=== PATIENT | male | born 1990 | race Caucasian/White ===

== ENCOUNTER 2017-07-13 22:00 | Inpatient (IN) | payer OTHER ==
--- NOTE | ~2017-07-13 | PN ---
Unit #: [id number] #: [id number] Patient: CHETAN RICK [id number] [facility] [address] [place] [address] [id number] MR#: [id number] NAME: CHETAN RICK. ROOM: [facility] Age: 27 Sex: M Admission Date: 07/14/2017 : 1990 Attending Physician: Kvng Zelaya M.D. Admitting Physician: Kvng Zelaya M.D. Primary Care Physician: Primary Care Physician Leah DAVIS PROGRESS NOTES DATE OF SERVICE: 07/15/2017 DISCUSSION Merlin continues to be irritable in mood with a downcast affect. He is alert and fully oriented. His memory and concentration are fair to good. His thought processes are goal directed with no active psychosis. He is having active detox symptoms today, but is tolerating his medicines with no problem. ASSESSMENT Bipolar disorder and substance abuse. PLAN Continue current treatment plan. Dictated by... Cammy Silva/digna TD: 07/20/2017 19:54 JOB #: [id number] [facility] PROGRESS NOTES Page 1 of 1 X Kvng Zelaya MD PROGRESS NOTE
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
--- NOTE | ~2017-07-13 | DS ---
Unit #: [id number] #: [id number] Patient: CHETAN RICK [id number] [facility] [address] [place] [address] [id number] MR#: [id number] NAME: CHETAN RICK. ROOM: [facility] Age: 27 Sex: M Admission Date: 07/14/2017 : 1990 Discharge Date: 07/16/2017 Attending Physician: Kvng Zelaya M.D. Primary Care Physician: Primary Care Physician No DISCHARGE SUMMARY REASOSN FOR ADMISSION Agustin 27-year-old man who presented to the emergency room reporting suicidal ideation and ongoing amphetamine use. He was unable to contract for safety and was admitted for stabilization. LABORATORY DATA Please see hospital chart. HOSPITAL COURSE Patient was admitted and placed on suicide precautions. His home medications were determined by a called to his pharmacy and restarted. Toxicology was positive for amphetamines. He was quiet and withdrawn throughout much of the hospitalization and participated only minimally in psychotherapy groups and activities. He was able to contract for safety on the date of discharge with no further suicidal ideation or psychosis. DISCHARGE DIAGNOSIS AXIS I: Bipolar depressed. Amphetamine dependence. AXIS II: No diagnosis. AXIS III: Cardiac arrhythmia. INSTRUCTION TO PATIENT Follow-up with [facility]. DISCHARGE MEDICATIONS 1. Haldol 5 mg once daily for psychosis. 2. Buspirone 5 mg t.i.d. for anxiety. 3. Trazodone 50 mg at bedtime for insomnia. 4. Depakote 500 mg twice a day for mood stability. 5. Inderal 10 mg twice daily for cardiac arrhythmia. CONDITION ON DISCHARGE Fair. PROGNOSIS Fair. DIET AND ACTIVITY Per primary care doctor. Unit #: [id number] #: [id number] Patient: CHETAN RICK Dictated by... Kvng Zelaya M.D. [facility]/mitali TD: 07/22/2017 03:05 JOB #: [id number] DISCHARGE SUMMARY Page 1 of 1 X Kvng Zelaya MD DISCHARGE SUMMARY
--- NOTE | ~2017-07-13 | HP ---
Unit #: [id number] #: [id number] Patient: RAI RICK [id number] [place] [address] [id number] MR#: [id number] NAME: RAI RICK. ROOM: [facility] Age: 27 Sex: M Admission Date: 07/14/2017 : 1990 Attending Physician: Kvng Zelaya M.D. Admitting Physician: Kvng Zelaya M.D. Primary Care Physician: Primary Care Physician No HISTORY AND PHYSICAL HISTORY OF PRESENT ILLNESS Rai is a 27 year old admitted to [facility] because of his illicit drug use which includes IV methamphetamine. PAST MEDICAL HISTORY 1. History of illicit substance abuse to include IV meth. 2. Hepatitis C. PAST SURGICAL HISTORY Nothing reported. ALLERGIES No known drug allergies. SOCIAL HISTORY Smokes 1 pack per day. Denies alcohol. Admits to a history of illicit substance abuse to include IV methamphetamine. FAMILY HISTORY Medically noncontributory. REVIEW OF SYSTEMS CONSTITUTIONAL: No fever or chills. HEENT: Denies any sore throat, ear pain or runny nose. CARDIOVASCULAR: Denies chest pain, irregular heart rhythm or palpitations. CHEST: Denies shortness of breath or cough. No hemoptysis. GASTROINTESTINAL: Denies nausea, vomiting, diarrhea or chronic constipation. ENDOCRINE: Denies history of increased thirst or urination. No recent significant weight loss or gain. GENITOURINARY: Denies dysuria, frequency, or hematuria. SKIN: Denies any rashes. HEMATOLOGIC: Denies history of increased bleeding or bruising. MUSCULOSKELETAL: Denies any hot, swollen joints. No generalized muscle pain. NEUROLOGIC: Denies problems with vision or speech. No frequent, severe headaches. No numbness, tingling or weakness in any extremities. Denies loss of bladder or bowel control. CURRENT MEDICATIONS 1. Haldol 5 mg daily. 2. Depakote 500 mg b.i.d. 3. Propranolol 10 mg b.i.d. Unit #: [id number] #: [id number] Patient: RAI RICK 4. BuSpar 5 mg t.i.d. 5. Desyrel p.r.n. 6. Milk of Magnesia p.r.n. 7. Maalox p.r.n. 8. Tylenol p.r.n. PHYSICAL EXAMINATION GENERAL: Alert, well-nourished, in no apparent distress. VITAL SIGNS: Blood pressure 100/60, heart rate 80, respirations 16, temperature 98.6. SKIN: Warm and dry without rash or lesion. HEENT: Normocephalic. TMs not viewed. Oral and nasal passages clear. Conjunctivae clear. PERRLA. EOMs intact. NECK: Supple without lymphadenopathy or thyromegaly. HEART: Regular rate and rhythm without murmur. LUNGS: Clear. ABDOMEN: Soft, nontender. : Not done. EXTREMITIES: No evidence of cyanosis, clubbing or edema. Moves all without focal deficit. NEUROLOGICAL: Unable to complete extended exam. He does move all extremities without focal deficit. Hand catapult and arresting gear officer is equal and gait is normal. IMPRESSION 1. Psychiatric admission. 2. Illicit drug use. RECOMMENDATIONS PSYCHIATRIC: Per psychiatrist. MEDICAL: See no contraindication to participate in facility's activities. MEDICAL PROGNOSIS Good. MEDICAL CONDITION Stable. Dictated by... Anoop GuerreroAShaunna-Cliff. for Cammy Banks/rachel TD: 07/14/2017 20:11 JOB #: [id number] Unit #: [id number] #: [id number] Patient: RAI RICK HISTORY AND PHYSICAL Page 1 of 1 X [place] HISTORY AND PHYSICAL
[2017-07-15 09:44] LABS: URINE APPEARANCE CLEAR; URINE BILIRUBIN NEG (NEG); URINE BLOOD NEG (NEG); URINE COLOR YELLOW; URINE GLUCOSE NEG (NEG); URINE KETONE NEG (NEG); URINE LEUKOCYTE ESTERASE NEG (NEG); URINE NITRATE NEG (NEG); URINE PH 6.5 (5-8); URINE PROTEIN NEG (NEG); URINE SPECIFIC GRAVITY 1.013 (1.003-1.035); URINE UROBILINOGEN 0.2 MG/DL (NEG)
[2017-07-15 11:03] LABS: AMPHETAMINE POS (NEG); BARBITURATES NEG (NEG); BENZODIAZEPINES NEG (NEG); COCAINE NEG (NEG); MARIJUANA NEG (NEG); OPIATES NEG (NEG); TRICYCLIC ANTIDEPRESSANTS NEG (NEG); U METHADONE NEG (NEG)
== END 2017-07-16 16:45 | DRG 885 ==
LOC: P1E 07-14 01:34
PROVIDERS: Psychiatry & Neurology Psychiatry
PROC: HZ2ZZZZ Detoxification Services for Substance Abuse Treatment (ICD-10-PCS; principal; 2017-07-14)
DX: F31.9 Bipolar disorder, unspecified (principal); R45.851 Suicidal ideations; F15.10 Other stimulant abuse, uncomplicated; F17.200 Nicotine dependence, unspecified, uncomplicated
CPT/HCPCS: 80307; 81003